=== PATIENT | female | born 1950 | race American Indian/Alaskan Native ===

== ENCOUNTER 2021-02-23 08:12 | Outpatient (CLI) | payer MEDICARE ==
--- NOTE | 2021-02-23 11:13 | Mammography Report ---
DIGITAL SCREENING MAMMOGRAM, 02/23/2021 CLINICAL INFORMATION / INDICATION: Routine screening mammography. SCREENING MAMMO TECHNIQUE: Digital bilateral 2D mammography was obtained in the craniocaudal and mediolateral obliqu e projections. COMPARISON: 02/22/20, 12/25/18 FINDINGS: Breast Density: The breasts are almost entirely fatty. No dominant mass, suspicious calcifications, or architectural distortion in either breast. Left breast biopsy marker is unchanged. IMPRESSION: No mammographic evidence of malignancy. Follow up recommendation: Routine yearly BI-RADS Category 2: Benign. A "normal" or negative report should not discourage follow up or biopsy of a clinically significant f inding. A written summary of these findings will be mailed to the patient. The patient will be entered into a mammography reporting system which will generate a reminder letter for the patient's next appointmen t at the appropriate interval. The [employer] recommends yearly mammograms starting at age 40 and continuing as l scott as a woman is in good health. Breast MRI is recommended for women with an approximate 20-25% or greater lifetime risk of breast cancer, including women with a strong family history of breast or ova mariaelena cancer or who have been treated for Hodgkin's disease. Signer Name: Saundra Hubbard MD Signed: 02/23/2021 11:08 AM Workstation Name: [id number]
== END 2021-02-23 08:13 | disposition home or self-care (01) ==
LOC: SPVWC 08:12
PROVIDERS: ATTEND Surgery
DX: Z12.31 Encounter for screening mammogram for malignant neoplasm of breast (principal)
CPT/HCPCS: 77067